=== PATIENT | female | born 1970 | race African-American/Black ===

== ENCOUNTER 2016-07-08 22:01 | Emergency (ER) | payer OTHER ==
[~2016-07-08] VITALS: Ht 170.2 cm; Wt 76.2 kg
[2016-07-08 22:31] VITALS: BP 118/69
[2016-07-08] MEDS ORDERED: traMADol HCL 50 MG TAB PO ONE (23:45)
== END 2016-07-09 00:23 | disposition home or self-care (01) ==
LOC: ER 22:08
DX: G89.29 Other chronic pain (principal); M25.562 Pain in left knee; M25.462 Effusion, left knee; Z76.5 Malingerer [conscious simulation]

== ENCOUNTER 2019-02-15 09:58 | Day surgery (SDC) | payer MEDICAID ==
[2019-02-14 13:10] LABS: Basophils # (auto) 0 uL; Basophils % (auto) 0.7 % (0.0-2.0); Eosinophils # (auto) 0.1 uL; Hemoglobin 13.5 g/dL (12.2-16.2); Lymphocytes # (auto) 2.6 uL; Lymphocytes % (auto) 44.3 % (10.0-50.0); Mean Corpuscular Hemoglobin 28.9 pg (28.0-32.0); Mean Corpuscular Hgb Conc. 33.6 g/dL (32.0-36.0); Monocytes # (auto) 0.4 uL; Neutrophils # (auto) 2.8 uL; Platelet Count (auto) 344 10^3/uL (140-450); Red Blood Cells 4.65 10^6/uL (4.0-5.20); Red Cell Distribution Width 15.4 % (11.8-14.3); White Blood Cell 5.9 10^3/uL (4.4-10.8)
[2019-02-14 13:11] LABS: Urine Bacteria NONE SEEN /hpf (None Seen); Urine Blood Negative /uL (Negative); Urine Mucus FEW (None Seen); Urine Specific Gravity 1.019 (1.001-1.035); Urine WBC <1 /hpf (0 - 5)
[2019-02-14 13:18] LABS: INR < 0.93 (0.9-1.15); Partial Thromboplastin Time 27.3 sec (23.64-32.05)
[2019-02-14 13:34] LABS: Potassium 3.9 mmol/L (3.5-5.1)
[2019-02-14 13:39] LABS: Albumin 4.1 g/dL (3.4-5.0); Bilirubin, Total 0.3 mg/dL (0.2-1.0); Total Protein 7.9 g/dL (6.4-8.2)
[~2019-02-15] VITALS: Ht 165.1 cm; Wt 72.1 kg
[~2019-02-15 09:58] MED LIST: ALBUAER3 IN; ALPR1TAB2 PO; FLUO20CA19 PO; HYDR-531 PO; LOSA25TA38 PO
[2019-02-15] MEDS ORDERED: ceFAZolin 1GM/50ML 50 ML IV ONE (11:52)
[2019-02-15] MEDS ORDERED: ROPIVACAINE 0.5% (5MG/ML) 20ML AMPULE IJ ONE (13:46)
[2019-02-15] MEDS ORDERED: fentaNYL CITRATE 100 MCG/2 ML VL ONE (14:07)
[2019-02-15] MEDS ORDERED: MIDAZOLAM HCL 1MG/1ML-2 ML VIAL ONE (14:07)
[2019-02-15] MEDS ORDERED: PROPOFOL 10 MG/ML 20 ML IV ONE (14:09)
[2019-02-15 15:29] VITALS: BP 164/92
== END 2019-02-15 15:49 | disposition home or self-care (01) ==
LOC: SUR 09:58
PROVIDERS: ATTEND Podiatrist Foot & Ankle Surgery
DX: M20.11 Hallux valgus (acquired), right foot (principal); M81.0 Age-related osteoporosis without current pathological fracture; J45.909 Unspecified asthma, uncomplicated; F41.9 Anxiety disorder, unspecified; I10 Essential (primary) hypertension; J98.19 Other pulmonary collapse; F32.9 Major depressive disorder, single episode, unspecified; Z79.899 Other long term (current) drug therapy; Z98.890 Other specified postprocedural states; Z96.652 Presence of left artificial knee joint; Z90.710 Acquired absence of both cervix and uterus
CPT/HCPCS: 28296; 36415; 73620; 80053; 81001; 85025; 85610; 85730; 93005; C1713; C1769; J0690; J2250; J2704; J2795; J3010; L3260